=== PATIENT | female | born 1970 | race Caucasian/White ===

== ENCOUNTER 2016-10-07 16:44 | Emergency (ER) | payer SELFPAY ==
[~2016-10-07] VITALS: Ht 172.7 cm; Wt 90.0 kg
[~2016-10-07 16:44] MED LIST: ASEN5TAB SL; HALO1 PO; OXYC-360 PO; VALI10TA PO; ZOVI400T15 PO
[2016-10-07 16:47] VITALS: BP 135/81; PULSE 82; RESP 17; TEMP 98.4; O2SAT 98
[2016-10-08] MEDS ORDERED: METO50TA PO (11:45)
[2016-10-08] MEDS ORDERED: DULO20 PO (11:45)
[2016-10-08] MEDS ORDERED: DIAZ10TA PO (11:45)
--- NOTE | 2016-10-08 12:51 | EKG ---
Date Performed: 10/07/2016 Time Performed: 16:59:22 PTAGE: 45 years EKG: Sinus rhythm INCOMPLETE RIGHT BUNDLE BRANCH BLOCK BORDERLINE ECG NO PREVIOUS TRACING DOCTOR: Percy Hay Interpretating Date/Time 10/08/2016 12:44:28
== END 2016-10-07 19:39 | disposition left against medical advice (07) ==
LOC: NED 16:44
DX: R94.31 Abnormal electrocardiogram [ECG] [EKG] (principal)
CPT/HCPCS: 93005; 99281

== ENCOUNTER 2016-10-08 10:21 | Emergency (ER) | payer SELFPAY ==
[~2016-10-08] VITALS: Ht 172.7 cm; Wt 81.0 kg
[2016-10-08 10:23] VITALS: BP 110/64; PULSE 70; RESP 20; TEMP 98.9; O2SAT 96
[2016-10-08] MEDS ORDERED: METO50TA PO (11:45)
[2016-10-08] MEDS ORDERED: DULO20 PO (11:45)
[2016-10-08] MEDS ORDERED: DIAZ10TA PO (11:45)
[2016-10-08 12:01] VITALS: RESP 18; O2SAT 97
[2016-10-08 12:08] VITALS: BP 102/67; PULSE 58; RESP 18; TEMP 97.8; O2SAT 97
[2016-10-08 12:25] LABS: BASOPHIL % 0.5 % (0.0-2.0); EOSINOPHIL # 0.2 TH/MM3 (0-0.4); EOSINOPHIL % 2.1 % (0.0-4.0); HEMATOCRIT 36.2 % (35.0-46.0); HEMO FLAGS DIFF FINAL; LYMPH % 25.3 % (9.0-44.0); LYMPHOCYTE # 1.9 TH/MM3 (1.0-4.8); MEAN CELL VOLUME 96.9 FL (80.0-100.0); MEAN CORPUSCULAR HEMOGLOBIN 33.4 PG (27.0-34.0); MEAN CORPUSCULAR HGB CONC 34.5 % (32.0-36.0); MONO % 7.2 % (0.0-8.0); NEUT % 64.9 % (16.0-70.0); PLATELET COUNT 260 TH/MM3 (150-450); RED BLOOD COUNT 3.74 MIL/MM3 (4.00-5.30); RED CELL DISTRIBUTION WIDTH 13.9 % (11.6-17.2); WHITE BLOOD COUNT 7.7 TH/MM3 (4.0-11.0)
[2016-10-08 12:33] LABS: APTT (PATIENT) 24.5 SEC (24.3-30.1); INTERNATIONAL NORMALIZED RATIO 0.9 RATIO; PROTHROMBIN TIME - PATIENT 9.8 SEC (9.8-11.6)
--- NOTE | 2016-10-08 12:36 | RADRPT ---
EXAM DATE/TIME: 10/08/2016 12:16 [facility] COMPARISON: No previous studies available for comparison. INDICATIONS : Palpititations. Bilateral leg swelling for the past three days. MEDICAL HISTORY : Hypertension. SURGICAL HISTORY : None. ENCOUNTER: Initial ACUITY: 3 days PAIN SCORE: 0/10 LOCATION: Bilateral chest FINDINGS: A single view of the chest demonstrates the lungs to be symmetrically aerated without evidence of mas s, infiltrate or effusion. The cardiomediastinal contours are unremarkable. Osseous structures are intact. CONCLUSION: No acute disease. Ji Lay MD on October 08, 2016 at 12:34 Board Certified Radiologist. This report was verified electronically.
[2016-10-08 12:41] LABS: ALT (GPT) 38 U/L (10-53); ANION GAP 6 MEQ/L (5-15); AST (GOT) 28 U/L (15-37); BICARBONATE 27.3 MEQ/L (21.0-32.0); BLOOD UREA NITROGEN 11 MG/DL (7-18); CHLORIDE 108 MEQ/L (98-107); GLOMERULAR FILTRATION RATE 82 ML/MIN (>89); POTASSIUM 4.2 MEQ/L (3.5-5.1); SODIUM (NA) 141 MEQ/L (136-145)
[2016-10-08 12:45] LABS: ALKALINE PHOSPHATASE 126 U/L (45-117); CREATINE KINASE 171 U/L (26-192); TOTAL BILIRUBIN ADULT 0.2 MG/DL (0.2-1.0)
[2016-10-08 12:58] LABS: CKMB 1.8 NG/ML (0.5-3.6)
--- NOTE | 2016-10-08 13:18 | RADRPT ---
EXAM DATE/TIME: 10/08/2016 12:24 [facility] COMPARISON: No previous studies available for comparison. INDICATIONS : Bilateral leg swelling. MEDICAL HISTORY : Renal calculi. Cerebrovascular accident. Bipolar disorder. Anxiety. SURGICAL HISTORY : Appendectomy. Ovarian cyst removal. Bilateral wrist surgery. Clavicle surgery. Shoulder surgery. ENCOUNTER: Initial ACUITY: 1 week PAIN SCORE: 4/10 LOCATION: Bilateral legs. TECHNIQUE: Venous ultrasound of the left and right leg was performed from the inguinal ligament to the proximal calf. Real-time, color Doppler and spectral tracing, compression and augmentation techniques were us ed. FINDINGS: RIGHT LEG: There is normal compressibility of the deep venous system from the inguinal region to the proximal ca lf. No echogenic clot is seen in the lumen of the common femoral, femoral, popliteal, and posterior tibial veins. There is a normal response of the venous system to proximal and distal augmentation an d respiration. LEFT LEG: There is normal compressibility of the deep venous system from the inguinal region to the proximal ca lf. No echogenic clot is seen in the lumen of the common femoral, femoral, popliteal, and posterior tibial veins. There is a normal response of the venous system to proximal and distal augmentation an d respiration. CONCLUSION: Normal examination. Heather Gamez MD on October 08, 2016 at 13:16 Board Certified Radiologist. This report was verified electronically.
[2016-10-08] MEDS ORDERED: ACETAMINOPHEN 325 MG TAB PO ONE (14:30)
[2016-10-08 14:38] VITALS: BP 108/58; PULSE 63; RESP 17; TEMP 97.8; O2SAT 98
--- NOTE | 2016-10-08 15:13 | PD ---
HPI Chief Complaint: Abnormal Results Time Seen by Provider: 11:54 Travel History International Travel<30 days: No Contact w/Intl Traveler<30days: No Traveled to known affect area: No History of Present Illness HPI Patient is a 45-year-old female who presents to emergency with multiple complaints. Patient reports that for the past few months, she has noticed that her heart rate was elevated. She reports her heart rate ranges from the 130s to 140s. She has follow-up with her primary care doctor,Dr. España who recently started on metoprolol. Patient reports that she was initially on the Toprol 50 mg, reports that her dose of metoprolol was increased 100 mg last week as her heart rate was in the 140s. Patient reports that last night, she felt as if her heart was racing, she is currently pending lab work from her primary care doctor included a thyroid study. Patient reports concern today as she felt as if her legs are swollen. Patient denies any recent travels or trips , denies history of DVT or PE. Patient with no chest pain or shortness of breath at this time. PFSH Past Medical History Hx Anticoagulant Therapy: No Asthma: No Bipolar Disorder: Yes Anxiety: Yes Cardiovascular Problems: Yes Chemotherapy: No COPD: No Cerebrovascular Accident: Yes Diabetes: No Diminished Hearing: No Kidney Stones: Yes Psychiatric: Yes Respiratory: No Tetanus Vaccination: > 5 Years Influenza Vaccination: Yes ?: Unknown Menopausal: Yes Past Surgical History Appendectomy: Yes Genitourinary Surgery: Yes (KIDNEY STONES) Gynecologic Surgery: Yes (OVARIAN CYST REMOVED) Hysterectomy: Yes Social History Alcohol Use: No (pt denies) Tobacco Use: Yes (5 cigarrettes per day) Substance Use: No (pt denies) Allergies-Medications (Allergen,Severity, Reaction): Coded Allergies: Naprosyn (Verified Allergy, Severe, HIVES, 10/08/16) Ultram (Verified Allergy, Severe, HIVES, 10/08/16) Reported Meds & Prescriptions Reported Meds & Active Scripts Active Reported Metoprolol Tartrate 50 Mg Tab 50 Mg PO BID Diazepam 10 Mg Tab 10 Mg PO TID PRN Cymbalta DR (Duloxetine HCl) 20 Mg Capdr 20 Mg PO DAILY Review of Systems General / Constitutional: No: Fever Eyes: No: Visual changes HENT: No: Headaches Cardiovascular: Positive: Palpitations, Irregular Rhythm, Tachycardia, No: Chest Pain or Discomfort Respiratory: Positive: Shortness of Breath Gastrointestinal: No: Abdominal Pain Genitourinary: No: Dysuria Musculoskeletal: No: Pain Skin: No Rash Neurologic: No: Weakness Psychiatric: No: Depression Endocrine: No: Polydipsia Hematologic/Lymphatic: No: Easy Bruising Physical Exam Narrative GENERAL: No acute distress, nontoxic SKIN: Focused skin assessment warm/dry. HEAD: Atraumatic. Normocephalic. EYES: Pupils equal and round. No scleral icterus. No injection or drainage. ENT: No nasal bleeding or discharge. Mucous membranes pink and moist. NECK: Trachea midline. No JVD. CARDIOVASCULAR: Regular rate and rhythm. No murmur appreciated. RESPIRATORY: No accessory muscle use. Clear to auscultation. Breath sounds equal bilaterally. GASTROINTESTINAL: Abdomen soft, non-tender, nondistended. Hepatic and splenic margins not palpable. MUSCULOSKELETAL: No obvious deformities. No clubbing. No cyanosis. +2 edema bilaterally NEUROLOGICAL: Awake and alert. No obvious cranial nerve deficits. Motor grossly within normal limits. Normal speech. PSYCHIATRIC: Appropriate mood and affect; insight and judgment normal. Data Data Last Documented VS Vital Signs Date Time Temp Pulse Resp B/P Pulse Ox O2 Delivery O2 Flow Rate FiO2 10/08/16 14:38 97.8 63 17 108/58 98 Room Air Orders Electrocardiogram (10/08/16 11:54) Complete Blood Count With Diff (10/08/16 11:54) Comprehensive Metabolic Panel (10/08/16 11:54) Prothrombin Time / Inr (Pt) (10/08/16 11:54) Act Partial Throm Time (Ptt) (10/08/16 11:54) Magnesium (Mg) (10/08/16 11:54) Ckmb (Isoenzyme) Profile (10/08/16 11:54) Troponin I (10/08/16 11:54) Urinalysis - C+S If Indicated (10/08/16 11:54) Blood Culture (10/08/16 11:54) Chest, Single Ap (10/08/16 11:54) Blood Glucose (10/08/16 11:54) Ecg Monitoring (10/08/16 11:54) Iv Access Insert/Monitor (10/08/16 11:54) Oximetry (10/08/16 11:54) Oxygen Administration (10/08/16 11:54) D-Dimer (10/08/16 11:54) Us Leg Venous Doppler Bilat (10/08/16 ) Thyroid Stimulating Hormone (10/08/16 12:00) CKMB (10/08/16 12:00) CKMB% (10/08/16 12:00) Acetaminophen (Tylenol) (10/08/16 14:30) Labs Laboratory Tests Test 10/08/16 12:00 White Blood Count 7.7 TH/MM3 Red Blood Count 3.74 MIL/MM3 Hemoglobin 12.5 GM/DL Hematocrit 36.2 % Mean Corpuscular Volume 96.9 FL Mean Corpuscular Hemoglobin 33.4 PG Mean Corpuscular Hemoglobin 34.5 % Concent Red Cell Distribution Width 13.9 % Platelet Count 260 TH/MM3 Mean Platelet Volume 8.3 FL Neutrophils (%) (Auto) 64.9 % Lymphocytes (%) (Auto) 25.3 % Monocytes (%) (Auto) 7.2 % Eosinophils (%) (Auto) 2.1 % Basophils (%) (Auto) 0.5 % Neutrophils # (Auto) 5.0 TH/MM3 Lymphocytes # (Auto) 1.9 TH/MM3 Monocytes # (Auto) 0.6 TH/MM3 Eosinophils # (Auto) 0.2 TH/MM3 Basophils # (Auto) 0.0 TH/MM3 CBC Comment DIFF FINAL Differential Comment Prothrombin Time 9.8 SEC Prothromb Time International 0.9 RATIO Ratio Activated Partial 24.5 SEC Thromboplast Time D-Dimer Quantitative (PE/DVT) 0.33 MG/L FEU Sodium Level 141 MEQ/L Potassium Level 4.2 MEQ/L Chloride Level 108 MEQ/L Carbon Dioxide Level 27.3 MEQ/L Anion Gap 6 MEQ/L Blood Urea Nitrogen 11 MG/DL Creatinine 0.76 MG/DL Estimat Glomerular Filtration 82 ML/MIN Rate Random Glucose 98 MG/DL Calcium Level 8.5 MG/DL Magnesium Level 2.0 MG/DL Total Bilirubin 0.2 MG/DL Aspartate Amino Transf 28 U/L (AST/SGOT) Alanine Aminotransferase 38 U/L (ALT/SGPT) Alkaline Phosphatase 126 U/L Total Creatine Kinase 171 U/L Creatine Kinase MB 1.8 NG/ML Troponin I LESS THAN 0.02 NG/ML Total Protein 6.4 GM/DL Albumin 3.5 GM/DL Thyroid Stimulating Hormone 0.363 uIU/ML 3rd Gen [facility] Medical Decision Making Medical Screen Exam Complete: Yes Emergency Medical Condition: Yes Interpretation(s) EKG 1146: Normal sinus rhythm at 60 beats per minute, QT/QTc 408/410, incomplete rbbb Vital Signs Date Time Temp Pulse Resp B/P Pulse Ox O2 Delivery O2 Flow Rate FiO2 10/08/16 14:38 97.8 63 17 108/58 98 Room Air 10/08/16 12:08 97.8 58 18 102/67 97 Room Air 10/08/16 12:01 97 Room Air 10/08/16 12:01 18 97 Room Air 10/08/16 11:46 59 18 97 Room Air 10/08/16 10:23 98.9 70 20 110/64 96 Room Air Laboratory Tests Test 10/08/16 12:00 White Blood Count 7.7 TH/MM3 (4.0-11.0) Red Blood Count 3.74 MIL/MM3 (4.00-5.30) Hemoglobin 12.5 GM/DL (11.6-15.3) Hematocrit 36.2 % (35.0-46.0) Mean Corpuscular Volume 96.9 FL (80.0-100.0) Mean Corpuscular Hemoglobin 33.4 PG (27.0-34.0) Mean Corpuscular Hemoglobin 34.5 % Concent (32.0-36.0) Red Cell Distribution Width 13.9 % (11.6-17.2) Platelet Count 260 TH/MM3 (150-450) Mean Platelet Volume 8.3 FL (7.0-11.0) Neutrophils (%) (Auto) 64.9 % (16.0-70.0) Lymphocytes (%) (Auto) 25.3 % (9.0-44.0) Monocytes (%) (Auto) 7.2 % (0.0-8.0) Eosinophils (%) (Auto) 2.1 % (0.0-4.0) Basophils (%) (Auto) 0.5 % (0.0-2.0) Neutrophils # (Auto) 5.0 TH/MM3 (1.8-7.7) Lymphocytes # (Auto) 1.9 TH/MM3 (1.0-4.8) Monocytes # (Auto) 0.6 TH/MM3 (0-0.9) Eosinophils # (Auto) 0.2 TH/MM3 (0-0.4) Basophils # (Auto) 0.0 TH/MM3 (0-0.2) CBC Comment DIFF FINAL Differential Comment Prothrombin Time 9.8 SEC (9.8-11.6) Prothromb Time International 0.9 RATIO Ratio Activated Partial 24.5 SEC Thromboplast Time (24.3-30.1) D-Dimer Quantitative (PE/DVT) 0.33 MG/L FEU (0.00-0.50) Sodium Level 141 MEQ/L (136-145) Potassium Level 4.2 MEQ/L (3.5-5.1) Chloride Level 108 MEQ/L (98-107) Carbon Dioxide Level 27.3 MEQ/L (21.0-32.0) Anion Gap 6 MEQ/L (5-15) Blood Urea Nitrogen 11 MG/DL (7-18) Creatinine 0.76 MG/DL (0.50-1.00) Estimat Glomerular Filtration 82 ML/MIN (>89) Rate Random Glucose 98 MG/DL (74-106) Calcium Level 8.5 MG/DL (8.5-10.1) Magnesium Level 2.0 MG/DL (1.5-2.5) Total Bilirubin 0.2 MG/DL (0.2-1.0) Aspartate Amino Transf 28 U/L (15-37) (AST/SGOT) Alanine Aminotransferase 38 U/L (10-53) (ALT/SGPT) Alkaline Phosphatase 126 U/L (45-117) Total Creatine Kinase 171 U/L (26-192) Creatine Kinase MB 1.8 NG/ML (0.5-3.6) Troponin I LESS THAN 0.02 NG/ML (0.02-0.05) Total Protein 6.4 GM/DL (6.4-8.2) Albumin 3.5 GM/DL (3.4-5.0) Thyroid Stimulating Hormone 0.363 uIU/ML 3rd Gen (0.358-3.740) Last Impressions Chest X-Ray 10/08/16 1154 Signed Impressions: Service Date/Time: Saturday, October 08, 2016 12:16 - CONCLUSION: No acute disease. Ji Lay MD Lower Extremity Ultrasound 10/08/16 0000 Signed Impressions: Service Date/Time: Saturday, October 08, 2016 12:24 - CONCLUSION: Normal examination. Heather Gamez MD Differential Diagnosis Differential includes arrhythmia, hypothyroidism, electrolyte abnormality, PE, DVT, CHF Narrative Course Patient is a 45-year-old female who presents to the emergency room with complaints of tachycardia. She reports that symptoms have been ongoing for the past few months and her primary care doctor is currently working her up for this. She reports concerns as she noticed increased leg swelling last night, reports that she feels as if her heart is racing. Patient was placed on a gun stock checker upon arrival to the emergency room. An EKG was obtained which showed normal sinus rhythm, lab work including d-dimer ordered. Ultrasound of her legs ordered to rule out DVT. Vital Signs Date Time Temp Pulse Resp B/P Pulse Ox O2 Delivery O2 Flow Rate FiO2 10/08/16 14:38 97.8 63 17 108/58 98 Room Air 10/08/16 12:08 97.8 58 18 102/67 97 Room Air 10/08/16 12:01 97 Room Air 10/08/16 12:01 18 97 Room Air 10/08/16 11:46 59 18 97 Room Air 10/08/16 10:23 98.9 70 20 110/64 96 Room Air Patient's vital signs stable throughout the emergency room visit, patient not tachycardic with a normal pulse rate. CBC & BMP Diagram 10/08/16 12:00 TSH 0.363, d-dimer 0.33 which is within normal limits. Last Impressions Chest X-Ray 10/08/16 1154 Signed Impressions: Service Date/Time: Saturday, October 08, 2016 12:16 - CONCLUSION: No acute disease. Ji Lay MD Lower Extremity Ultrasound 10/08/16 0000 Signed Impressions: Service Date/Time: Saturday, October 08, 2016 12:24 - CONCLUSION: Normal examination. Heather Gamez MD Patient with no evidence of DVT on lower extremity ultrasound. Labs and studies are reassuring. Plan to discharge patient with follow-up with her primary care doctor. Patient will have a repeat ultrasound 1 week if symptoms persist Diagnosis Primary Impression: Heart palpitations Additional Impression: Leg swelling Patient Instructions: General Instructions Additional Instructions: Please provide patient with a copy of her lab work and studies at discharge Please follow-up with your primary care doctor Please have your ultrasound repeated in 1 week if swelling persist. Return to ER as needed or if symptoms return Disposition: 01 DISCHARGE HOME Condition: Stable Sheridan Michaels DO Oct 08, 2016 15:12
[2016-10-08 15:20] VITALS: BP 110/68; TEMP 97.8
[2016-10-08 15:22] LABS: BLOOD, URINE NEG (NEG); GLUCOSE,URINE NEG (NEG); KETONE, URINE NEG (NEG); MUCUS URINE FEW /lpf (OCC); NITRITE,URINE NEG (NEG); PH, URINE 7.5 (5.0-8.5); SQUAMOUS EPITHELIAL CELL URINE <1 /hpf (0-5); URINE COLOR YELLOW (YELLW/STRAW)
[2016-10-08 15:25] LABS: COMMENT (UR) CATH-CULT NOT IND; CULTURE IF INDICATED CATH CULTURE NOT IND
--- NOTE | 2016-10-09 12:30 | EKG ---
Date Performed: 10/08/2016 Time Performed: 11:46:30 PTAGE: 45 years EKG: Sinus rhythm WITH SINUS ARRHYTHMIA LOW QRS VOLTAGE IN PRECORDIAL LEADS INCOMPLETE RIGHT BUNDLE BRANCH BLOCK Joaquin red to prior tracing no significant change BORDERLINE ECG PREVIOUS TRACING : 10/07/2016 16.59 DOCTOR: Percy Hay Interpretating Date/Time 10/09/2016 12:28:48
== END 2016-10-08 15:20 | disposition home or self-care (01) ==
LOC: NEPE 10:21
DX: I49.8 Other specified cardiac arrhythmias (principal); M79.89 Other specified soft tissue disorders
CPT/HCPCS: 71010; 80053; 81001; 82550; 82552; 83735; 84443; 84484; 85025; 85379; 85610; 85730; 87040; 93005; 93970; 99285

== ENCOUNTER 2016-10-29 12:19 | Emergency (ER) | payer SELFPAY ==
[~2016-10-29 12:19] MED LIST changes: -ASEN5TAB SL; +DIAZ10TA PO; +DULO20 PO; -HALO1 PO; +METO50TA PO; -OXYC-360 PO; -VALI10TA PO; -ZOVI400T15 PO
[2016-10-29 12:21] VITALS: BP 114/69; PULSE 90; RESP 15; TEMP 98.1; O2SAT 99
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
[2016-10-29] MEDS ORDERED: MORPHINE SULFATE 4 MG/ML INJ IM ONE (12:45)
[2016-10-29] MEDS ORDERED: ONDANSETRON ODT 4 MG TAB PO ONE (12:45)
--- NOTE | 2016-10-29 13:07 | RADRPT ---
EXAM DATE/TIME: 10/29/2016 12:46 [facility] COMPARISON: CHEST SINGLE AP, October 08, 2016, 12:16. INDICATIONS : Patient complains of left lower rib pain after [place] a ride [place] [employer] [place]. MEDICAL HISTORY : None. SURGICAL HISTORY : None. ENCOUNTER: Initial ACUITY: 2 days PAIN SCORE: 9/10 LOCATION: Left Ribs FINDINGS: Multiple views of the left ribs were performed. There is no evidence of acute fracture. No destruct julio lesions or areas of periosteal thickening are seen. Expiratory view of the chest is negative for pneumothorax. The mediastinal structures are midline. Patient has old, healed fractures of the left first and second ribs, and the midshaft of the left cla vicle and the body of the scapula. CONCLUSION: 1. No perceptible acute rib fracture. No pneumothorax or other acute pulmonary disease demonstrated. 2. Old, healed left upper rib, left clavicle and left scapula fractures. Contreras Westfall MD on October 29, 2016 at 13:04 Board Certified Radiologist. This report was verified electronically.
[2016-10-29] MEDS ORDERED: PRED20 PO (13:33)
[2016-10-29] MEDS ORDERED: HYDR-3533 PO ×2 (13:33→13:35)
== END 2016-10-29 13:51 | disposition home or self-care (01) ==
LOC: NEPD 12:37
DX: S20.212A Contusion of left front wall of thorax, initial encounter (principal); X58.XXXA Exposure to other specified factors, initial encounter; Y92.838 Other recreation area as the place of occurrence of the external cause; F31.9 Bipolar disorder, unspecified; Z86.73 Personal history of transient ischemic attack (TIA), and cerebral infarction without residual deficits
CPT/HCPCS: 71101; 96372; 99284; J2270

== ENCOUNTER 2016-11-02 13:52 | Emergency (ER) | payer SELFPAY ==
[~2016-11-02] VITALS: Ht 162.6 cm; Wt 80.0 kg
[~2016-11-02 13:52] MED LIST changes: +HYDR-3533 PO; +PRED20 PO
[2016-11-02 13:54] VITALS: BP 128/70; PULSE 90; RESP 24; TEMP 97.8; O2SAT 98
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
[2016-11-02] MEDS ORDERED: IBUP800T23 PO (14:37)
[2016-11-02] MEDS ORDERED: ROBA500T PO (14:37)
--- NOTE | 2016-11-02 14:38 | PD ---
HPI Chief Complaint: Pain: Acute or Chronic Time Seen by Provider: 14:36 Travel History International Travel<30 days: No Contact w/Intl Traveler<30days: No Traveled to known affect area: No History of Present Illness HPI 46-year-old female presents to the emergency department with complaint of continued left chest wall pain after riding a ride at [facility] on Monday. She was evaluated here on October 29 and was told if she was having continued pain to come back in for reevaluation. She says her x-ray showed no broken ribs. She reports having broken ribs in the past and this pain is similar. She has been taking her prescribed meds as prescribed for symptom management. She says she has an incentive spirometer at home that she has been using. Has been bracing the area with a small pillow for support during coughing, sneezing, etc. She denies fever, vomiting. Denies chest pain, shortness breath. Denies hemoptysis or sputum production. Has no other medical complaints. Symptoms are mild in severity. Allergies to cortisone, Naprosyn, Ultram. No other modifying factors or associated signs and symptoms. PFSH Past Medical History Hx Anticoagulant Therapy: No Asthma: No Bipolar Disorder: Yes Anxiety: Yes Cardiovascular Problems: Yes Chemotherapy: No COPD: No Cerebrovascular Accident: Yes Diabetes: No Diminished Hearing: No Kidney Stones: Yes Psychiatric: Yes Respiratory: No ?: Not Menopausal: Yes Past Surgical History Appendectomy: Yes Genitourinary Surgery: Yes (KIDNEY STONES) Gynecologic Surgery: Yes (OVARIAN CYST REMOVED) Hysterectomy: Yes Social History Alcohol Use: No (pt denies) Tobacco Use: Yes (5 cigarrettes per day) Substance Use: No (pt denies) Allergies-Medications (Allergen,Severity, Reaction): Coded Allergies: Cortisone (Verified Allergy, Severe, 11/02/16) CORTISONE INJECTIONS IN SHOULDER. Naprosyn (Verified Allergy, Severe, HIVES, 10/08/16) Ultram (Verified Allergy, Severe, HIVES, 10/08/16) Reported Meds & Prescriptions Reported Meds & Active Scripts Active Ibuprofen 800 Mg Tab 800 Mg PO Q6HR PRN Robaxin (Methocarbamol) 500 Mg Tab 500 Mg PO QID PRN Lortab (Hydrocodone-Acetaminophen) 5-325 Mg Tab 1 Tab PO Q6H PRN Prednisone 20 Mg Tab 20 Mg PO BID Reported Metoprolol Tartrate 50 Mg Tab 50 Mg PO BID Diazepam 10 Mg Tab 10 Mg PO TID PRN Mariely MCNEAL (Duloxetine HCl) 20 Mg Capdr 20 Mg PO DAILY Review of Systems Except as stated in HPI: all other systems reviewed are Neg Physical Exam Narrative GENERAL: Well-nourished, well-developed female patient, in no acute distress SKIN: Warm and dry. Stage II ecchymosis noted to the underneath of the left breast; the breast is nontender to palpation. HEAD: Atraumatic. Normocephalic. EYES: Pupils equal and round. No scleral icterus. No injection or drainage. ENT: Mucosa pink and moist. NECK: Trachea midline. CHEST: Reproducible tenderness to the lower anterior rib cage, just below the left breast; no crepitance or deformity. No retractions or use of accessory muscles. CARDIOVASCULAR: Regular rate and rhythm. No murmur appreciated. RESPIRATORY: No accessory muscle use. Clear to auscultation. Breath sounds equal bilaterally. No retractions or tachypnea. GASTROINTESTINAL: Abdomen soft, non-tender, nondistended. Hepatic and splenic margins not palpable. Bowel sounds are active 4 quadrants. MUSCULOSKELETAL: No obvious deformities. No clubbing. No cyanosis. No edema. NEUROLOGICAL: Awake and alert. Oriented 3. No obvious cranial nerve deficits. Motor grossly within normal limits. Normal speech. Moves all extremities. 5/5 strength to all extremities. PSYCHIATRIC: Appropriate mood and affect; insight and judgment normal. Data Data Last Documented VS Vital Signs Date Time Temp Pulse Resp B/P Pulse Ox O2 Delivery O2 Flow Rate FiO2 11/02/16 13:54 97.8 90 24 128/70 98 Room Air Orders Methocarbamol (Robaxin) (11/02/16 14:45) MDM Medical Decision Making Medical Screen Exam Complete: Yes Emergency Medical Condition: Yes Medical Record Reviewed: Yes Differential Diagnosis Contusion of thoracic wall, rib contusion, medical clearance Narrative Course 46-year-old female with contusion of thoracic wall there was seen on October 29 and an x-ray of the ribs showed no acute findings. Patient returns complaining of continued chest wall pain. She has been taking her prescribed medications as prescribed. Denies chest pain, shortness of breath. Denies hemoptysis. She does have an incentives barometer home that she's been using for deep breathing exercises. The patient is without retractions or tachypnea. Lung sounds are clear and equal throughout. Oxygen saturation is 98% on room air. She is in no acute distress. I do not feel repeat imaging is necessary at this time. Robaxin administered in the ER. Ibuprofen and Robaxin prescribed for home. Instructed patient to follow up with primary care provider. Patient verbalizes understanding and agreement with treatment plan. Patient is medically cleared and stable for discharge. Discussed reasons to return to the emergency department. Patient agrees with treatment plan. The patients vital signs are stable and the patient is stable for outpatient follow-up and treatment. Patient discharged home, stable and in no acute distress. Diagnosis Primary Impression: Contusion of thoracic wall Qualified Code: S20.212D - Contusion of left front wall of thorax, subsequent encounter Referrals: [facility] Primary Care Physician Patient Instructions: General Instructions, Rib Contusion (ED) Additional Instructions: Ibuprofen or Tylenol as directed and as needed to reduce pain Robaxin as prescribed and as needed to reduce muscle spasms Heating pad and/or ice to affected area to reduce pain Avoid aggravating activities; increase activity as tolerated Incentive spirometer every 2 hours while awake for deep breathing exercises Follow-up with a primary care provider Return to the emergency department immediately with worsening of symptoms Med/Other Pt SpecificInfo: Prescription(s) given Scripts Ibuprofen 800 Mg [id number] Mg PO Q6HR PRN (PAIN) #30 TAB Ref 0 Prov:Marcella Bustamante 11/02/16 Methocarbamol (Robaxin)500 Mg [id number] Mg PO QID PRN (MUSCLE SPASM) #30 TAB Ref 0 Prov:Marcella Bustamante 11/02/16 Disposition: 01 DISCHARGE HOME Condition: Stable Marcella Bustamante Nov 02, 2016 14:38
[2016-11-02] MEDS ORDERED: METHOCARBAMOL 500 MG TAB PO ONE (14:45)
== END 2016-11-02 15:15 | disposition home or self-care (01) ==
LOC: NEPK 13:52
DX: S20.212A Contusion of left front wall of thorax, initial encounter (principal); X58.XXXA Exposure to other specified factors, initial encounter; Z86.73 Personal history of transient ischemic attack (TIA), and cerebral infarction without residual deficits
CPT/HCPCS: 99283